=== PATIENT | male | born 1975 | race Caucasian/White ===

== ENCOUNTER 2024-01-04 13:36 | Emergency (ER) | payer OTHER, SELFPAY ==
[2024-01-04 14:22] LABS: #Basophils 0.1 thou/uL (0.0-0.2); #Eosinphils 0.2 thou/uL (0.0-0.7); %Basophils 1.2 % (0.0-1.0); %Lymphocytes 26.3 % (21.0-51.0); %Monocytes 10.2 % (0.0-10.0); %Neutrophils 59.7 % (42.0-75.0); Hematocrit 48.7 % (42.0-52.0); Hemoglobin 16.5 g/dL (14.0-18.0); Mean Corpuscular HGB CONC 33.9 g/dL (32.0-36.0); Mean Corpuscular Hemoglobin 29.5 pg (27.0-31.0); Mean Platelet Volume 10.1 fL (7.4-10.4); Platelet Count 253 10x3/uL (130-400); RBC Distribution Width 13.7 % (11.5-14.5); White Blood Cell (WBC) Count 10.1 10x3/uL (4.8-10.8)
[2024-01-04 14:48] LABS: Anion Gap 12 mmol/L (10-20); BUN (Urea Nitrogen) 14 mg/dL (8.9-20.6); Calc. Creatinine Clearance 0 mL/min (70-130); Calcium 9.5 mg/dL (7.8-10.44); Carbon Dioxide 27 mmol/L (22-29); Chloride 103 mmol/L (98-107); Estimated GFR 90; Glucose 132 mg/dL (70-105); Potassium 4.5 mmol/L (3.5-5.1); Sodium 137 mmol/L (136-145)
== END 2024-01-04 16:08 | disposition home or self-care (01) ==
LOC: ERS 13:36
DX: M79.671 Pain in right foot (principal); F17.220 Nicotine dependence, chewing tobacco, uncomplicated
CPT/HCPCS: 36415; 80048; 85025

== ENCOUNTER 2024-12-11 11:46 | Emergency (ER) | payer OTHER ==
[2024-12-11] MEDS ORDERED: Ibuprofen 800 MG TAB ONE (12:35)
[2024-12-11] MEDS ORDERED: Acetaminophen 500 MG TAB ONE (12:35)
== END 2024-12-11 13:12 | disposition home or self-care (01) ==
LOC: ERS 11:46
DX: M25.552 Pain in left hip (principal); V58.4XXA Person boarding or alighting a pick-up truck or van injured in noncollision transport accident, initial encounter
CPT/HCPCS: 99283